=== PATIENT | female | born 1960 | race Caucasian/White ===

== ENCOUNTER 2018-04-28 09:09 | Day surgery (SDC) | payer OTHER ==
[~2018-04-28] VITALS: Ht 167.6 cm; Wt 73.2 kg
[~2018-04-28 09:09] MED LIST: AMLO-511 PO; ATOR20TA86 PO; CLON1 PO; DIME50TA23 PO; LISI-662 PO; METO25 PO; VITAD1000 PO
[2018-04-28] MEDS ORDERED: 0.9% SODIUM CHLORIDE 10 ML SYRINGE IVP PRN (09:30)
[2018-04-28] MEDS ORDERED: METOPROLOL TARTRATE 50 MG TABLET PO PRN (09:30)
[2018-04-28] MEDS ORDERED: NITR0.4T50 SL (09:40)
[2018-04-28] MEDS ORDERED: SALBUTAMOL PO (09:40)
[2018-04-28 10:07] LABS: ANION GAP 4 mmol/L (8-16); CALCIUM, TOTAL 8.6 mg/dL (8.8-10.5); CARBON DIOXIDE 29 mmol/L (22-29); CHLORIDE 103 mmol/L (98-107); CREATININE 0.93 mg/dL (0.60-1.30); GLOMERULAR FILTR. RATE CALC > 60 mL/min (>60); GLUCOSE,RANDOM 100 mg/dL (70-110); POTASSIUM 4.4 mmol/L (3.5-5.1); SODIUM SERUM 136 mmol/L (136-145); UREA NITROGEN, BLOOD 21 mg/dL (7-18)
[2018-04-28] MEDS ORDERED: METOPROLOL TARTRATE 50 MG TABLET ONE (10:11)
[2018-04-28] MEDS ORDERED: METOPROLOL TARTRATE 5 MG/5 ML VIAL ONE (11:07)
[2018-04-28] MEDS ORDERED: NITROGLYCERIN 400 MCG/SUBLINGUAL SPRAY 4.9 GM BOTTLE SL ONE ×2 (11:07→11:22)
[2018-04-28] MEDS ORDERED: IOVERSOL 350 MG/ML 150 ML VIAL ONE (11:15)
[2018-04-28 12:01] LABS: GLUCOMETER DEV NAME(LOC) SDS 5; GLUCOSE,POINT OF CARE 84 MG/DL (70-110)
== END 2018-04-28 12:10 | disposition other institution (70) ==
LOC: SURGERY 09:09 → EDSTATUS 11:00 → SURGERY 12:10
PROVIDERS: ATTEND Internal Medicine Cardiovascular Disease
DX: I67.2 Cerebral atherosclerosis (principal); I11.9 Hypertensive heart disease without heart failure; I20.8 Other forms of angina pectoris; J45.998 Other asthma; F41.8 Other specified anxiety disorders; E78.00 Pure hypercholesterolemia, unspecified; Z86.79 Personal history of other diseases of the circulatory system; Z87.891 Personal history of nicotine dependence; Z88.0 Allergy status to penicillin; Z91.012 Allergy to eggs; Z79.899 Other long term (current) drug therapy; Z98.890 Other specified postprocedural states; Z88.8 Allergy status to other drugs, medicaments and biological substances
CPT/HCPCS: 36415; 70450; 70496; 71045; 75574; 80048; 82962; 93005; Q9967; J3490

== ENCOUNTER 2018-04-28 12:03 | Emergency (ER) | payer OTHER ==
[~2018-04-28] VITALS: Ht 157.5 cm; Wt 73.2 kg
[~2018-04-28 12:03] MED LIST changes: +NITR0.4T50 SL; +SALBUTAMOL PO
[2018-04-28 13:47] LABS: BASOPHILS % (AUTO) 0.7 % (0.0-2.0); HEMATOCRIT 38.6 % (36-46); HEMOGLOBIN 13.1 g/dL (12.0-16.0); LYMPHOCYTES # (AUTO) 2.4 K/uL (1.0-4.8); LYMPHOCYTES % (AUTO) 32.7 % (22.0-44.0); MEAN CORPUSCULAR HEMOGLOBIN 29.9 pg (26.0-34.0); MEAN CORPUSCULAR HGB CONC 34.1 G/dL (31.0-37.0); MEAN CORPUSCULAR VOLUME 88 fL (80-100); MONOCYTES # (AUTO) 0.6 K/uL (0.1-1.0); MONOCYTES % (AUTO) 8.4 % (2.0-9.0); NEUTROPHILS # (AUTO) 4.1 K/uL (1.8-7.7); NEUTROPHILS % (AUTO) 55.2 % (40.0-70.0); PLATELET COUNT (AUTO) 284 K/uL (150-450)
[2018-04-28 13:57] LABS: ANION GAP 9 mmol/L (8-16); CALCIUM, TOTAL 8.3 mg/dL (8.8-10.5); CARBON DIOXIDE 24 mmol/L (22-29); CHLORIDE 101 mmol/L (98-107); CREATININE 0.95 mg/dL (0.60-1.30); GLOMERULAR FILTR. RATE CALC > 60 mL/min (>60); GLUCOSE,RANDOM 95 mg/dL (70-110); POTASSIUM 4.3 mmol/L (3.5-5.1); SODIUM SERUM 134 mmol/L (136-145); UREA NITROGEN, BLOOD 21 mg/dL (7-18)
[2018-04-28 14:05] LABS: ALANINE AMINOTRANSFERASE 23 U/L (12-78); ALBUMIN 3.3 g/dL (3.4-5.0); ALKALINE PHOSPHATASE 111 U/L (46-116); ASPARTATE AMINOTRANSFERASE 20 U/L (15-37); BILIRUBIN,TOTAL 0.3 mg/dL (0.1-1.0); TOTAL PROTEIN, SERUM 6.9 g/dL (6.4-8.2)
[2018-04-28 15:50] VITALS: BP 137/82
== END 2018-04-28 16:04 | disposition home or self-care (01) ==
LOC: EMS 12:03
DX: T50.995A Adverse effect of other drugs, medicaments and biological substances, initial encounter (principal); Z88.0 Allergy status to penicillin; Z91.012 Allergy to eggs; Y92.89 Other specified places as the place of occurrence of the external cause
CPT/HCPCS: 70551; 93005; 99285